=== PATIENT | female | born 1940 | race Caucasian/White ===

== ENCOUNTER 2020-01-31 07:43 | Emergency (ER) | payer MEDICARE, OTHER ==
[~2020-01-31] VITALS: Ht 170.2 cm; Wt 90.7 kg
--- NOTE | 2020-01-31 08:00 | NUR ---
FROM HOME, C/O CHEST DISCOMFORT DUE TO "ARRHYTHMIA". HX OF AFIB. PATIENT A/OX4, BREATHING EVEN AND UNLABORED, NO SOB NOTED, DENIES CHEST PAIN. CHANGED INTO A GOWN, ATTACHED TO THE [employer]. DR. WOODARD AT BEDSIDE FOR EVAL.
[2020-01-31 08:07] LABS: BASOPHILS % (AUTO) 0.5 % (0.0-2.0); EOSINOPHILS % (AUTO) 1.5 % (0.0-6.0); HEMATOCRIT 42 % (33-45); HEMOGLOBIN 14.3 g/dL (11.5-14.8); LYMPHOCYTES # (AUTO) 1.9 /CMM (0.8-4.8); LYMPHOCYTES % (AUTO) 35.6 % (20.0-44.0); MEAN CORPUSCULAR HGB CONC 34 g/dl (31.0-36.0); MEAN CORPUSCULAR VOLUME 90 fL (82-100); MONOCYTES # (AUTO) 0.5 /CMM (0.1-1.30); NEUTROPHILS # (AUTO) 2.9 /CMM (1.8-8.9); NEUTROPHILS % (AUTO) 53.4 % (43.0-81.0); PLATELET COUNT (AUTO) 219 /CMM (150-450); RED BLOOD CELL COUNT(AUTO) 4.64 MIL/uL (4.0-5.2); WHITE BLOOD COUNT (AUTO) 5.4 K/uL (4.3-11.0)
--- NOTE | 2020-01-31 08:08 | NUR ---
IV LINE ESTABLISHED ON RIGHT AC G18, BLOOD DRAWN AND SENT TO LAB.
[2020-01-31 08:25] LABS: CALCIUM, SERUM 9.4 mg/dL (8.5-10.1); CARBON DIOXIDE 29 mmol/L (21-32); CHLORIDE 102 mmol/L (98-107); GLUCOSE 122 mg/dL (74-106); POTASSIUM 3.9 mmol/L (3.5-5.1); SODIUM SERUM 138 mmol/L (136-145); UREA NITROGEN, BLOOD 14 mg/dL (7-18)
[2020-01-31] MEDS ORDERED: BISO5TAB20 PO (08:40)
[2020-01-31] MEDS ORDERED: AMLO5TAB4 PO (08:40)
[2020-01-31] MEDS ORDERED: RIVA10TA PO (08:40)
--- NOTE | 2020-01-31 08:50 | NUR ---
CALLED DR. SWAPNA MASSEY CARDIO [phone] [facility] WILL CALL US BACK.
--- NOTE | 2020-01-31 09:00 | NUR ---
Patient resting, no distress noted. at bedside.
--- NOTE | 2020-01-31 09:47 | NUR ---
Patient a/ox4, breathing even and unlabored, no sob noted, ambulatory with steady gait. IV removed. Catheter intact and site benign. Pressure and 4x4 applied to site. No bleeding noted.Patient discharged to home in stable condition. Written and verbal after care instructions given. Patient verbalizes understanding of instruction.
[2020-01-31 09:48] VITALS: BP 122/66
== END 2020-01-31 09:49 | disposition home or self-care (01) ==
LOC: ER 07:51
DX: I48.20 Chronic atrial fibrillation, unspecified (principal); I10 Essential (primary) hypertension; Z79.899 Other long term (current) drug therapy; Z79.01 Long term (current) use of anticoagulants
CPT/HCPCS: 36415; 71045-TC; 80048-TC; 84484-TC; 85025-TC